=== PATIENT | male | born 2000 | race American Indian/Alaskan Native ===

== ENCOUNTER 2025-08-28 03:26 | Emergency (ER) | payer SELFPAY ==
[2025-08-28] MEDS ORDERED: Sodium Chloride 0.9% 10 ML Syringe FLUSH PRN (03:44)
[2025-08-28 04:00] LABS: BASOPHILS PERCENT AUTO 0.3 % (0.0-1.0); EOSINOPHILS PERCENT AUTO 7.6 % (1.0-3.0); LYMPHOCYTES PERCENT AUTO 14.1 % (20.5-50.1); MONOCYTES PERCENT AUTO 6.8 % (2-8); NEUTROPHILS PERCENT AUTO 71.2 % (42.2-75.2); PLATELET COUNT,PLT 275 10^3/uL (150-450); RED BLOOD CELL COUNT 5.99 10^6/uL (4.6-6.2); WHITE BLOOD CELL COUNT,WBC 16.5 10^3/uL (5.0-10.0)
[2025-08-28 04:25] LABS: A/G RATIO 1.3; ALANINE AMINOTRANSFERASE,ALT 97.0 U/L (16-63); ASPARTATE AMNIOTRANSFERASE,AST 30.0 U/L (15-37); BILIRUBIN TOTAL 1.0 mg/dL (0.2-1.0); BLOOD UREA NITROGEN,BUN 10.0 mg/dL (7-18); CARBON DIOXIDE,CO2 28.0 mmol/L (21-32); CHLORIDE,CL 104.0 mmol/L (98-107); CREATININE 1.04 mg/dL (0.70-1.30); EST CRCL DRUG DOSING (CG) 114.06 mL/min; ESTIMATED GFR 103.0 mL/min (>=60); GLUCOSE RANDOM 118.0 mg/dL (70-99); POTASSIUM,K 3.1 mmol/L (3.5-5.1); PROTEIN TOTAL,TP 8.5 g/dL (6.4-8.2); SODIUM,NA 141.0 mmol/L (136-145)
== END 2025-08-28 04:47 | disposition home or self-care (01) ==
LOC: DL.ED 03:26
DX: J06.9 Acute upper respiratory infection, unspecified (principal)
CPT/HCPCS: 71045; 80053; 83735; 85025; 87428; 93005; 99285; J3535; A9270-GY

== ENCOUNTER 2025-10-16 07:41 | Emergency (ER) | payer MEDICAID ==
[2025-10-16] MEDS: Dexamethasone 4 MG/ML SDV IM ONE (08:18)
== END 2025-10-16 08:21 | disposition home or self-care (01) ==
LOC: DL.ED 07:41
DX: J45.20 Mild intermittent asthma, uncomplicated (principal)
CPT/HCPCS: 96372; 99285; J1100; J3535; A9270-GY